=== PATIENT | female | born 1955 | race Two or more races ===

== ENCOUNTER → 2021-04-28 | Outpatient (CLI) | payer MEDICAID | END | disposition home or self-care (01) | LOC: XYW 13:42 | PROVIDERS: ATTEND Internal Medicine | DX: I25.10 Atherosclerotic heart disease of native coronary artery without angina pectoris (principal) | CPT/HCPCS: 93306 ==

== ENCOUNTER → 2021-06-10 | Outpatient (CLI) | payer MEDICAID ==
[~2021-06-10] VITALS: Ht 144.8 cm; Wt 52.2 kg
[~2021-06-10] MED LIST: ADENOSINE 44 MG in GIVE UN-DILUTED 0 ML IV STA
[2021-06-10 09:41] VITALS: BP 157/66
== END | disposition home or self-care (01) ==
LOC: EDUNIT# 05-06 08:30 → XY 08:16
PROVIDERS: ATTEND Internal Medicine
DX: I25.10 Atherosclerotic heart disease of native coronary artery without angina pectoris (principal); E11.22 Type 2 diabetes mellitus with diabetic chronic kidney disease; N18.30 Chronic kidney disease, stage 3 unspecified; Z95.5 Presence of coronary angioplasty implant and graft
CPT/HCPCS: 78452; 93017; A9500; J0153

== ENCOUNTER 2022-05-29 16:38 | Inpatient (IN) | payer OTHER, MEDICAID ==
[~2022-05-29] VITALS: Ht 162.6 cm; Wt 78.0 kg
[2022-05-29] MEDS ORDERED: SODIUM CHLORIDE 0.9% 1,000 ML IV ONE (16:45)
[2022-05-29 17:09] LABS: Basophils # (auto) 0 10 ^3/uL (0-0.2); Basophils % (auto) 0.3 % (0.0-2.0); Eosinophils # (auto) 0.4 10 ^3/uL (0-0.8); Eosinophils % (auto) 6.3 % (0.0-7.0); Hematocrit 37.3 % (36.0-46.0); Hemoglobin 12.4 g/dL (12.2-16.2); Lymphocytes % (auto) 31.2 % (10.0-50.0); Mean Corpuscular Hgb Conc. 33.2 g/dL (32.0-36.0); Mean Corpuscular Volume 93.4 fL (80.0-100.0); Monocytes # (auto) 0.5 10 ^3/uL (0-1.3); Monocytes % (auto) 8.5 % (0.0-12.0); Neutrophils # (auto) 3.4 10 ^3/uL (1.6-8.6); Neutrophils % (auto) 53.7 % (37.0-80.0); Nucleated Red Blood Cells % 0.4 %; Red Blood Cells 3.99 10^6/uL (4.0-5.20); White Blood Cell 6.4 10^3/uL (4.4-10.8)
[2022-05-29 17:35] LABS: Albumin 1.9 g/dL (3.4-5.0); BUN/Creatinine Ratio 14.4; Potassium 3.9 mmol/L (3.5-5.1)
[2022-05-29 17:38] LABS: Bilirubin, Total 1.2 mg/dL (0.2-1.0); Total Protein 6.4 g/dL (6.4-8.2)
[2022-05-29] MEDS ORDERED: ENOXAPARIN SOD 80 MG/0.8ML SYRINGE SC ONE (20:30)
[2022-05-29] MEDS ORDERED: DOCUSATE SOD 100 MG CAP PO PRN (22:15)
[2022-05-29] MEDS ORDERED: ALBUMIN 25% 100 ML IV ONE (22:15)
[2022-05-29] MEDS ORDERED: ONDANSETRON HCL 4 MG/2 ML VIAL IV PRN (22:15)
[2022-05-29] MEDS ORDERED: SOD CHL 0.45% 1,000 ML IV SCH (22:30)
[2022-05-29] MEDS ORDERED: HEPARIN SODIUM (PORCINE) 5000 UNITS/ML 1ML VIAL SC ONE (23:00)
[2022-05-29] MEDS ORDERED: MORPHINE SULFATE INJ 2 MG/ml SYRG IV PRN (23:30)
[2022-05-29] MEDS ORDERED: NITROGLYCERIN 0.4 MG SL TAB SL PRN (23:30)
[2022-05-30 02:00] VITALS: BP 147/48
[2022-05-30] MEDS ORDERED: ALBUTEROL SULF HFA 90MCG INH 200DOSE IN SCH (06:00)
[2022-05-30 06:32] LABS: Lactic Acid w/Reflex 2.2 mmol/L (0.4-2.0)
[2022-05-30 06:34] LABS: Alanine Aminotransferase 37 U/L (13-56); Albumin 2.5 g/dL (3.4-5.0); Anion Gap 9 (5-15); Aspartate Aminotransferase 96 U/L (15-37); BUN/Creatinine Ratio 15.5; Blood Urea Nitrogen 34 mg/dL (7-18); Calcium 8.1 mg/dL (8.5-10.1); Carbon Dioxide 19 mmol/L (21-32); Chloride 118 mmol/L (98-107); GFR African American 29 mL/min; GFR Non-African American 24 mL/min; Glucose 94 mg/dL (74-106); Potassium 4.1 mmol/L (3.5-5.1); Sodium 146 mmol/L (136-145)
[2022-05-30 06:36] LABS: Alkaline Phosphatase 311 U/L (45-117); Bilirubin, Total 1.4 mg/dL (0.2-1.0); Total Protein 6.7 g/dL (6.4-8.2)
[2022-05-30 06:49] LABS: Basophils # (auto) 0 10 ^3/uL (0-0.2); Basophils % (auto) 0.2 % (0.0-2.0); Eosinophils # (auto) 0.4 10 ^3/uL (0-0.8); Eosinophils % (auto) 5.2 % (0.0-7.0); Hematocrit 38.8 % (36.0-46.0); Hemoglobin 12.3 g/dL (12.2-16.2); Lymphocytes # (auto) 2.3 10 ^3/uL (0.4-5.4); Lymphocytes % (auto) 33.7 % (10.0-50.0); Mean Corpuscular Hemoglobin 29.6 pg (28.0-32.0); Mean Corpuscular Hgb Conc. 31.8 g/dL (32.0-36.0); Mean Corpuscular Volume 93.2 fL (80.0-100.0); Monocytes # (auto) 0.6 10 ^3/uL (0-1.3); Monocytes % (auto) 8.9 % (0.0-12.0); Neutrophils # (auto) 3.6 10 ^3/uL (1.6-8.6); Nucleated Red Blood Cells % 0.3 %; Red Blood Cells 4.16 10^6/uL (4.0-5.20); Red Cell Distribution Width 16.5 % (11.8-14.3); White Blood Cell 6.9 10^3/uL (4.4-10.8)
[2022-05-30] MEDS ORDERED: VANCOMYCIN PER PHARMACY 0 MG IV SCH (07:00)
[2022-05-30 07:05] LABS: Cholesterol 79 mg/dL (< 200); HDL Cholesterol 21 mg/dL (40-59); LDL Cholesterol 45 mg/dL (< 100); Triglycerides 111 mg/dL (< 150)
[2022-05-30] MEDS: BUDESONIDE (INHALATION) 180 MCG IH IN SCH ×2 (07:25→22:00)
[2022-05-30] MEDS ORDERED: VANCOMYCIN 1GM/250ML 250 ML IV ONE (08:00)
[2022-05-30] MEDS: CHOLECALCIFEROL (VITD3) 2,000 UNIT CAP/TAB PO SCH ×2 (09:49→10:00)
[2022-05-30] MEDS: ZINC SULFATE 220mg CAP or TAB PO SCH ×2 (09:49→10:00)
[2022-05-30] MEDS: ASPirin 81 mg TAB PO SCH ×2 (09:50→10:00)
[2022-05-30] MEDS: HEPARIN SODIUM (PORCINE) 5000 UNITS/ML 1ML VIAL SC SCH ×2 (09:56→23:37)
[2022-05-30] MEDS: FAMOTIDINE (10MG/ML) 2ML VL IV SCH (09:57)
[2022-05-30] MEDS: DexAMETHasone SOD PHOS 10MG/1ML VIAL INJ IV SCH (09:57)
[2022-05-30] MEDS: ASCORBIC ACID 1,000 MG TAB PO SCH (10:00)
[2022-05-30] MEDS: DOXYCYCLINE 100MG/250ML 250 ML IV SCH (10:00)
[2022-05-30 10:35] LABS: Urine Bacteria NONE SEEN /hpf (None Seen); Urine Blood 3+ /uL (Negative); Urine WBC 3444 /hpf (0 - 5); Urine WBC Clumps PRESENT /hpf (None Seen)
[2022-05-30] MEDS: SODIUM BICARBONATE 50ML VIAL 50 ML in SOD CHL 0.45% 1,000 ML IV SCH ×2 (11:57→21:00)
[2022-05-30] MEDS: LACTULOSE 10g/15ml SOLN 473ML PR SCH ×3 (12:00→18:00)
[2022-05-30] MEDS ORDERED: ALBUTEROL SULF HFA 90MCG INH 200DOSE IN PRN (12:45)
[2022-05-30] MEDS ORDERED: levoFLOXacin 500MG 100 ML IV ONE (12:45)
[2022-05-31] MEDS: DOXYCYCLINE 100MG/250ML 250 ML IV SCH ×3 (00:29→22:53)
[2022-05-31] MEDS: LACTULOSE 10g/15ml SOLN 473ML PR SCH ×4 (06:00→17:36)
[2022-05-31] MEDS: SODIUM BICARBONATE 50ML VIAL 50 ML in SOD CHL 0.45% 1,000 ML IV SCH ×2 (08:07→17:36)
[2022-05-31 08:15] LABS: Basophils # (auto) 0 10 ^3/uL (0-0.2); Basophils % (auto) 0.1 % (0.0-2.0); Eosinophils # (auto) 0 10 ^3/uL (0-0.8); Hematocrit 37.5 % (36.0-46.0); Hemoglobin 11.8 g/dL (12.2-16.2); Lymphocytes # (auto) 1.5 10 ^3/uL (0.4-5.4); Mean Corpuscular Hemoglobin 29.8 pg (28.0-32.0); Mean Corpuscular Hgb Conc. 31.5 g/dL (32.0-36.0); Mean Corpuscular Volume 94.6 fL (80.0-100.0); Monocytes # (auto) 0.3 10 ^3/uL (0-1.3); Monocytes % (auto) 4.4 % (0.0-12.0); Neutrophils # (auto) 5.2 10 ^3/uL (1.6-8.6); Neutrophils % (auto) 73.5 % (37.0-80.0); Nucleated Red Blood Cells % 0.1 %; Red Blood Cells 3.96 10^6/uL (4.0-5.20); Red Cell Distribution Width 16.5 % (11.8-14.3)
[2022-05-31 08:36] LABS: Albumin 2.2 g/dL (3.4-5.0); BUN/Creatinine Ratio 17.5; Potassium 4.5 mmol/L (3.5-5.1)
[2022-05-31 08:38] LABS: Total Protein 6.5 g/dL (6.4-8.2)
[2022-05-31] MEDS: levoFLOXacin 250MG 50 ML IV SCH (11:14)
[2022-05-31] MEDS: FAMOTIDINE (10MG/ML) 2ML VL IV SCH (11:14)
[2022-05-31] MEDS: ASCORBIC ACID 1,000 MG TAB PO SCH (11:15)
[2022-05-31] MEDS: CHOLECALCIFEROL (VITD3) 2,000 UNIT CAP/TAB PO SCH (11:15)
[2022-05-31] MEDS: DexAMETHasone SOD PHOS 10MG/1ML VIAL INJ IV SCH (11:15)
[2022-05-31] MEDS: ASPirin 81 mg TAB PO SCH (11:15)
[2022-05-31] MEDS: ZINC SULFATE 220mg CAP or TAB PO SCH (11:15)
[2022-05-31] MEDS: HEPARIN SODIUM (PORCINE) 5000 UNITS/ML 1ML VIAL SC SCH ×2 (11:16→22:54)
[2022-05-31] MEDS ORDERED: DOPamine 1600MCG/ML D5W 250 ML IV SCH (12:00)
[2022-05-31] MEDS ORDERED: OXYC325T14 PO (17:48)
[2022-05-31] MEDS ORDERED: CARV3.1240 PO (17:48)
[2022-05-31] MEDS ORDERED: CLOP75TA70 PO (17:48)
[2022-05-31] MEDS ORDERED: ATOR40TA52 PO (17:48)
[2022-05-31] MEDS ORDERED: CYCL-611 PO (17:48)
[2022-05-31 22:00] VITALS: BP 150/65
[2022-06-01] VITALS (7 sets, daily range): BP systolic 105–140; BP diastolic 69–82
[2022-06-01] MEDS: SODIUM BICARBONATE 50ML VIAL 50 ML in SOD CHL 0.45% 1,000 ML IV SCH ×2 (05:33→15:00)
[2022-06-01] MEDS: LACTULOSE 10g/15ml SOLN 473ML PR SCH ×2 (06:00)
[2022-06-01] MEDS: ZINC SULFATE 220mg CAP or TAB PO SCH (09:06)
[2022-06-01] MEDS: ASPirin 81 mg TAB PO SCH (09:06)
[2022-06-01] MEDS: CHOLECALCIFEROL (VITD3) 2,000 UNIT CAP/TAB PO SCH (09:06)
[2022-06-01] MEDS: ASCORBIC ACID 1,000 MG TAB PO SCH (09:06)
[2022-06-01] MEDS: FAMOTIDINE (10MG/ML) 2ML VL IV SCH (09:07)
[2022-06-01] MEDS: DOXYCYCLINE 100MG/250ML 250 ML IV SCH ×2 (09:07→21:53)
[2022-06-01] MEDS: DexAMETHasone SOD PHOS 10MG/1ML VIAL INJ IV SCH (09:07)
[2022-06-01] MEDS: HEPARIN SODIUM (PORCINE) 5000 UNITS/ML 1ML VIAL SC SCH ×2 (10:42→21:54)
[2022-06-01] MEDS: LACTULOSE 20Gm/30ML SOLN PO SCH ×3 (12:00→23:56)
[2022-06-01] MEDS: levoFLOXacin 250MG 50 ML IV SCH (12:18)
[2022-06-01 22:23] LABS: Urine Bacteria MANY /hpf (None Seen); Urine Blood 2+ /uL (Negative); Urine WBC 3198 /hpf (0 - 5); Urine WBC Clumps PRESENT /hpf (None Seen)
[2022-06-02] MEDS: SODIUM BICARBONATE 50ML VIAL 50 ML in SOD CHL 0.45% 1,000 ML IV SCH ×3 (01:30→21:36)
[2022-06-02 05:00] VITALS: BP 176/51
[2022-06-02] MEDS: LACTULOSE 20Gm/30ML SOLN PO SCH ×4 (06:22→21:09)
[2022-06-02 09:00] VITALS: BP 158/72
[2022-06-02] MEDS: HEPARIN SODIUM (PORCINE) 5000 UNITS/ML 1ML VIAL SC SCH ×2 (10:02→21:07)
[2022-06-02] MEDS: levoFLOXacin 250MG 50 ML IV SCH (10:02)
[2022-06-02] MEDS: ASPirin 81 mg TAB PO SCH (10:03)
[2022-06-02] MEDS: DOXYCYCLINE 100MG/250ML 250 ML IV SCH ×2 (10:03→21:07)
[2022-06-02] MEDS: FAMOTIDINE (10MG/ML) 2ML VL IV SCH (10:03)
[2022-06-02] MEDS: ZINC SULFATE 220mg CAP or TAB PO SCH (10:03)
[2022-06-02] MEDS: CHOLECALCIFEROL (VITD3) 2,000 UNIT CAP/TAB PO SCH (10:03)
[2022-06-02] MEDS: DexAMETHasone SOD PHOS 10MG/1ML VIAL INJ IV SCH (10:04)
[2022-06-02] MEDS: ASCORBIC ACID 1,000 MG TAB PO SCH (10:58)
[2022-06-02 22:00] VITALS: BP 153/80
[2022-06-03 05:27] VITALS: BP 155/75
[2022-06-03] MEDS: LACTULOSE 20Gm/30ML SOLN PO SCH ×4 (06:41→22:51)
[2022-06-03 09:00] VITALS: BP 131/60
[2022-06-03] MEDS: CHOLECALCIFEROL (VITD3) 2,000 UNIT CAP/TAB PO SCH (09:32)
[2022-06-03] MEDS: ASPirin 81 mg TAB PO SCH (09:32)
[2022-06-03] MEDS: ZINC SULFATE 220mg CAP or TAB PO SCH (09:32)
[2022-06-03] MEDS: FAMOTIDINE (10MG/ML) 2ML VL IV SCH (09:32)
[2022-06-03] MEDS: DOXYCYCLINE 100MG/250ML 250 ML IV SCH ×2 (09:35→22:52)
[2022-06-03] MEDS: DexAMETHasone SOD PHOS 10MG/1ML VIAL INJ IV SCH (09:35)
[2022-06-03] MEDS ORDERED: ERTAPENEM SOD INJ 1 GM in SODIUM CHL 0.9% 50 ML IV SCH (10:00)
[2022-06-03] MEDS: ASCORBIC ACID 1,000 MG TAB PO SCH (10:09)
[2022-06-03] MEDS: HEPARIN SODIUM (PORCINE) 5000 UNITS/ML 1ML VIAL SC SCH ×2 (10:11→22:00)
[2022-06-03 12:46] VITALS: BP_SYST 142; BP_SYST 187; BP_DIAS 59; BP_DIAS 91
[2022-06-03] MEDS: SODIUM BICARBONATE 50ML VIAL 50 ML in SOD CHL 0.45% 1,000 ML IV SCH ×2 (16:52→19:30)
[2022-06-03 17:00] VITALS: BP 136/82
[2022-06-03 22:00] VITALS: BP 150/73
[2022-06-04] MEDS ORDERED: hydrALAZINE HCL 20 MG/ML VL IV ONE (01:00)
[2022-06-04 05:08] VITALS: BP 147/68
[2022-06-04] MEDS: SODIUM BICARBONATE 50ML VIAL 50 ML in SOD CHL 0.45% 1,000 ML IV SCH ×3 (06:00→22:52)
[2022-06-04] MEDS: LACTULOSE 20Gm/30ML SOLN PO SCH ×3 (06:00→18:13)
[2022-06-04 08:00] VITALS: BP 155/64
[2022-06-04 09:09] VITALS: BP 155/64
[2022-06-04] MEDS: CHOLECALCIFEROL (VITD3) 2,000 UNIT CAP/TAB PO SCH (10:00)
[2022-06-04] MEDS: HEPARIN SODIUM (PORCINE) 5000 UNITS/ML 1ML VIAL SC SCH ×2 (10:00→22:00)
[2022-06-04] MEDS: ZINC SULFATE 220mg CAP or TAB PO SCH (10:00)
[2022-06-04] MEDS: DexAMETHasone SOD PHOS 10MG/1ML VIAL INJ IV SCH (10:00)
[2022-06-04] MEDS: ASPirin 81 mg TAB PO SCH (10:00)
[2022-06-04] MEDS: FAMOTIDINE (10MG/ML) 2ML VL IV SCH (10:00)
[2022-06-04] MEDS: ASCORBIC ACID 1,000 MG TAB PO SCH (10:00)
[2022-06-04] MEDS: ERTAPENEM SOD INJ 0.5 GM in SODIUM CHL 0.9% 50 ML IV SCH (11:04)
[2022-06-04 13:56] VITALS: BP 148/67
[2022-06-04 17:12] VITALS: BP 155/66
[2022-06-04 20:00] VITALS: BP 154/58
[2022-06-05] MEDS: SODIUM BICARBONATE 50ML VIAL 50 ML in SOD CHL 0.45% 1,000 ML IV SCH ×2 (00:57→07:49)
[2022-06-05] MEDS: LACTULOSE 20Gm/30ML SOLN PO SCH ×4 (06:00→18:00)
[2022-06-05 08:00] VITALS: BP 157/72
[2022-06-05 08:04] VITALS: BP 157/72
[2022-06-05] MEDS ORDERED: CLINIMIX PER PHARMACY 0 ML IV SCH (09:30)
[2022-06-05] MEDS: HEPARIN SODIUM (PORCINE) 5000 UNITS/ML 1ML VIAL SC SCH ×2 (10:00→21:55)
[2022-06-05] MEDS: DexAMETHasone SOD PHOS 10MG/1ML VIAL INJ IV SCH (11:36)
[2022-06-05] MEDS: ASCORBIC ACID 1,000 MG TAB PO SCH (11:36)
[2022-06-05] MEDS: CHOLECALCIFEROL (VITD3) 2,000 UNIT CAP/TAB PO SCH (11:36)
[2022-06-05] MEDS: ASPirin 81 mg TAB PO SCH (11:36)
[2022-06-05] MEDS: ZINC SULFATE 220mg CAP or TAB PO SCH (11:36)
[2022-06-05 11:41] VITALS: BP 167/80
[2022-06-05] MEDS: ERTAPENEM SOD INJ 0.5 GM in SODIUM CHL 0.9% 50 ML IV SCH (11:46)
[2022-06-05 16:28] VITALS: BP 139/85
[2022-06-05] MEDS ORDERED: SODIUM BICARBONATE 50ML VIAL 150 ML in D5W 5% 1,000 ML IV ONE (17:30)
[2022-06-05] MEDS ORDERED: amLODIPine BESYLATE 5 MG TAB PO ONE (17:45)
[2022-06-05] MEDS ORDERED: LORazepam 2MG/ML-1ML VIAL IV ONE (19:00)
[2022-06-05] MEDS ORDERED: DEXTROSE (50%) 50ML SYRG IV SCH (20:00)
[2022-06-05] MEDS: AMINO ACID INFUSION IN D10W 1,000 ML IV NR (21:43)
[2022-06-05] MEDS: PANTOPRAZOLE 40 MG/10 ML VIAL INJ IV SCH (21:44)
[2022-06-05 22:00] VITALS: BP 128/60
[2022-06-06] MEDS: ACCU-CHEK COMFORT CURVE STRIP VI SCH ×5 (00:27→23:29)
[2022-06-06] MEDS: LACTULOSE 20Gm/30ML SOLN PO SCH ×5 (00:27→23:29)
[2022-06-06] MEDS: InsuLIN REG 1unit/0.01ml Soln (100units/ml) SC SCH ×5 (00:31→23:18)
[2022-06-06 04:45] VITALS: BP 136/74
[2022-06-06 05:41] LABS: Albumin 1.8 g/dL (3.4-5.0); Calcium 7.6 mg/dL (8.5-10.1); Magnesium 1.5 mg/dL (1.6-2.6)
[2022-06-06 05:46] LABS: BUN/Creatinine Ratio 23.3; Bilirubin, Total 1.7 mg/dL (0.2-1.0); Phosphorus 2.4 mg/dL (2.5-4.90); Total Protein 5.1 g/dL (6.4-8.2)
[2022-06-06 08:00] VITALS: BP 109/44
[2022-06-06] MEDS: DexAMETHasone SOD PHOS 10MG/1ML VIAL INJ IV SCH (09:43)
[2022-06-06] MEDS: ERTAPENEM SOD INJ 0.5 GM in SODIUM CHL 0.9% 50 ML IV SCH (09:43)
[2022-06-06] MEDS: PANTOPRAZOLE 40 MG/10 ML VIAL INJ IV SCH ×2 (09:43→22:00)
[2022-06-06] MEDS: HEPARIN SODIUM (PORCINE) 5000 UNITS/ML 1ML VIAL SC SCH ×2 (10:00→22:00)
[2022-06-06] MEDS: ASPirin 81 mg TAB PO SCH (10:00)
[2022-06-06] MEDS: ASCORBIC ACID 1,000 MG TAB PO SCH (10:00)
[2022-06-06] MEDS: ZINC SULFATE 220mg CAP or TAB PO SCH (10:00)
[2022-06-06] MEDS: amLODIPine BESYLATE 5 MG TAB PO SCH (10:00)
[2022-06-06] MEDS: CHOLECALCIFEROL (VITD3) 2,000 UNIT CAP/TAB PO SCH (10:00)
[2022-06-06] MEDS ORDERED: POTASSIUM EFFERVESENT TAB 25 MEQ PO ONE (11:30)
[2022-06-06] MEDS ORDERED: POTASSIUM CHL 20 Meq TABLET PO ONE (11:30)
[2022-06-06] MEDS ORDERED: POTASSIUM PHOSPHATE 44 MEQ in D5W 5% 250 ML IV ONE (11:45)
[2022-06-06] MEDS ORDERED: MAGNESIUM SULFATE 1GM/100ML 100 ML IV ONE (11:45)
[2022-06-06] MEDS ORDERED: MAGNESIUM OXIDE 400 MG TAB PO ONE (11:45)
[2022-06-06] MEDS ORDERED: FUROSEMIDE 40 MG/4 ML VIAL IV ONE (11:45)
[2022-06-06] MEDS ORDERED: POTASSIUM CHL 20MEQ/100ML 100 ML IV ONE (12:30)
[2022-06-06 13:00] VITALS: BP 137/78
[2022-06-06 17:07] VITALS: BP 116/64
[2022-06-06 20:00] VITALS: BP 109/44
[2022-06-06] MEDS: AMINO ACID INFUSION IN D10W 1,000 ML IV NR (20:24)
[2022-06-06 22:00] VITALS: BP 96/60
[2022-06-07 04:43] VITALS: BP 129/56
[2022-06-07] MEDS: InsuLIN REG 1unit/0.01ml Soln (100units/ml) SC SCH ×4 (05:18→21:59)
[2022-06-07] MEDS: LACTULOSE 20Gm/30ML SOLN PO SCH ×4 (05:20→22:01)
[2022-06-07] MEDS: ACCU-CHEK COMFORT CURVE STRIP VI SCH ×4 (06:00→22:02)
[2022-06-07 08:00] VITALS: BP 104/59
[2022-06-07 09:00] VITALS: BP 104/59
[2022-06-07] MEDS ORDERED: MAGNESIUM OXIDE 400 MG TAB PO SCH (10:00)
[2022-06-07] MEDS: ASPirin 81 mg TAB PO SCH (10:00)
[2022-06-07] MEDS: amLODIPine BESYLATE 5 MG TAB PO SCH (10:00)
[2022-06-07] MEDS: CHOLECALCIFEROL (VITD3) 2,000 UNIT CAP/TAB PO SCH (10:00)
[2022-06-07] MEDS: ZINC SULFATE 220mg CAP or TAB PO SCH (10:00)
[2022-06-07] MEDS: ASCORBIC ACID 1,000 MG TAB PO SCH (10:00)
[2022-06-07] MEDS: ERTAPENEM SOD INJ 0.5 GM in SODIUM CHL 0.9% 50 ML IV SCH (10:06)
[2022-06-07] MEDS: PANTOPRAZOLE 40 MG/10 ML VIAL INJ IV SCH ×2 (10:06→21:59)
[2022-06-07] MEDS: DexAMETHasone SOD PHOS 10MG/1ML VIAL INJ IV SCH (10:07)
[2022-06-07] MEDS: HEPARIN SODIUM (PORCINE) 5000 UNITS/ML 1ML VIAL SC SCH ×2 (10:29→22:01)
[2022-06-07 13:37] LABS: Basophils # (auto) 0 10 ^3/uL (0-0.2); Basophils % (auto) 0.1 % (0.0-2.0); Eosinophils # (auto) 0 10 ^3/uL (0-0.8); Hematocrit 37.9 % (36.0-46.0); Hemoglobin 12.2 g/dL (12.2-16.2); Lymphocytes # (auto) 1.4 10 ^3/uL (0.4-5.4); Lymphocytes % (auto) 12.1 % (10.0-50.0); Mean Corpuscular Hemoglobin 29.9 pg (28.0-32.0); Mean Corpuscular Hgb Conc. 32.3 g/dL (32.0-36.0); Mean Corpuscular Volume 92.7 fL (80.0-100.0); Monocytes # (auto) 0.3 10 ^3/uL (0-1.3); Monocytes % (auto) 2.7 % (0.0-12.0); Neutrophils # (auto) 9.7 10 ^3/uL (1.6-8.6); Neutrophils % (auto) 85.1 % (37.0-80.0); Nucleated Red Blood Cells % 0.3 %; Red Blood Cells 4.09 10^6/uL (4.0-5.20); Red Cell Distribution Width 16.3 % (11.8-14.3); White Blood Cell 11.5 10^3/uL (4.4-10.8)
[2022-06-07 13:55] LABS: Albumin 1.8 g/dL (3.4-5.0); Calcium 7.9 mg/dL (8.5-10.1); Magnesium 1.9 mg/dL (1.6-2.6); Potassium 4.2 mmol/L (3.5-5.1)
[2022-06-07 13:57] LABS: BUN/Creatinine Ratio 27.6; Bilirubin, Total 1.6 mg/dL (0.2-1.0); Total Protein 5.5 g/dL (6.4-8.2)
[2022-06-07 14:49] LABS: INR 1.34 (0.9-1.15); Partial Thromboplastin Time 49.5 sec (24.6-33.4)
[2022-06-07] MEDS ORDERED: FUROSEMIDE 20 MG/2 ML VIAL IV ONE (16:00)
[2022-06-07 20:00] VITALS: BP 104/59
[2022-06-07] MEDS ORDERED: AMINO ACID INFUSION IN D10W 1,000 ML IV NR (20:00)
[2022-06-07 21:08] VITALS: BP 118/63
[2022-06-08 04:32] VITALS: BP 130/43
[2022-06-08] MEDS: InsuLIN REG 1unit/0.01ml Soln (100units/ml) SC SCH ×4 (05:40→23:39)
[2022-06-08] MEDS: LACTULOSE 20Gm/30ML SOLN PO SCH ×4 (05:43→23:38)
[2022-06-08] MEDS: ACCU-CHEK COMFORT CURVE STRIP VI SCH ×4 (06:00→23:39)
[2022-06-08 08:00] VITALS: BP 112/52
[2022-06-08 08:30] VITALS: BP 112/52
[2022-06-08] MEDS: PANTOPRAZOLE 40 MG/10 ML VIAL INJ IV SCH ×2 (09:25→20:55)
[2022-06-08] MEDS: DexAMETHasone SOD PHOS 10MG/1ML VIAL INJ IV SCH (09:25)
[2022-06-08] MEDS: ERTAPENEM SOD INJ 0.5 GM in SODIUM CHL 0.9% 50 ML IV SCH (09:25)
[2022-06-08] MEDS: ASPirin 81 mg TAB PO SCH (09:25)
[2022-06-08] MEDS: HEPARIN SODIUM (PORCINE) 5000 UNITS/ML 1ML VIAL SC SCH (09:26)
[2022-06-08] MEDS: CHOLECALCIFEROL (VITD3) 2,000 UNIT CAP/TAB PO SCH (09:26)
[2022-06-08] MEDS: amLODIPine BESYLATE 5 MG TAB PO SCH (09:26)
[2022-06-08 10:10] LABS: BUN/Creatinine Ratio 32.3; Potassium 4.7 mmol/L (3.5-5.1)
[2022-06-08 10:11] LABS: Calcium 7.6 mg/dL (8.5-10.1)
[2022-06-08 10:12] LABS: Albumin 1.3 g/dL (3.4-5.0); Bilirubin, Total 1.3 mg/dL (0.2-1.0); Phosphorus 3.5 mg/dL (2.5-4.90); Total Protein 5.2 g/dL (6.4-8.2)
[2022-06-08 12:30] VITALS: BP 130/59
[2022-06-08] MEDS ORDERED: ALBUMIN 25% 50 ML IV SCH (13:45)
[2022-06-08 17:00] VITALS: BP 153/67
[2022-06-08] MEDS: ALBUMIN 25% 50 ML IV SCH (18:27)
[2022-06-08] MEDS: AMINO ACID INFUSION IN D10W 1,000 ML IV NR (18:27)
[2022-06-08] MEDS: MIRTAZAPINE 30 MG TAB PO SCH (20:56)
[2022-06-08 22:00] VITALS: BP 139/59
[2022-06-09] MEDS: ALBUMIN 25% 50 ML IV SCH ×2 (01:48→09:47)
[2022-06-09 05:00] VITALS: BP 152/52
[2022-06-09] MEDS: LACTULOSE 20Gm/30ML SOLN PO SCH ×4 (05:01→23:37)
[2022-06-09] MEDS: InsuLIN REG 1unit/0.01ml Soln (100units/ml) SC SCH ×4 (06:16→23:43)
[2022-06-09] MEDS: ACCU-CHEK COMFORT CURVE STRIP VI SCH ×4 (06:20→23:38)
[2022-06-09 08:00] VITALS: BP 134/59
[2022-06-09 09:00] VITALS: BP 134/59
[2022-06-09] MEDS: DexAMETHasone SOD PHOS 10MG/1ML VIAL INJ IV SCH (09:45)
[2022-06-09] MEDS: CHOLECALCIFEROL (VITD3) 2,000 UNIT CAP/TAB PO SCH (09:46)
[2022-06-09] MEDS: ERTAPENEM SOD INJ 0.5 GM in SODIUM CHL 0.9% 50 ML IV SCH (09:46)
[2022-06-09] MEDS: amLODIPine BESYLATE 5 MG TAB PO SCH (09:46)
[2022-06-09] MEDS: ASPirin 81 mg TAB PO SCH (09:46)
[2022-06-09] MEDS: PANTOPRAZOLE 40 MG/10 ML VIAL INJ IV SCH ×2 (09:46→21:00)
[2022-06-09 10:35] LABS: Albumin 2.1 g/dL (3.4-5.0); Calcium 8.1 mg/dL (8.5-10.1); Magnesium 2.1 mg/dL (1.6-2.6); Potassium 4.3 mmol/L (3.5-5.1)
[2022-06-09 10:37] LABS: BUN/Creatinine Ratio 33.6; Bilirubin, Total 1.8 mg/dL (0.2-1.0); Phosphorus 3.2 mg/dL (2.5-4.90); Total Protein 5.3 g/dL (6.4-8.2)
[2022-06-09 13:00] VITALS: BP 129/55
[2022-06-09 17:00] VITALS: BP 125/74
[2022-06-09] MEDS: AMINO ACID INFUSION IN D10W 1,000 ML IV NR (20:13)
[2022-06-09] MEDS: MIRTAZAPINE 30 MG TAB PO SCH (21:01)
[2022-06-09 22:00] VITALS: BP 154/74
[2022-06-10 05:00] VITALS: BP 152/57
[2022-06-10] MEDS: LACTULOSE 20Gm/30ML SOLN PO SCH ×4 (05:27→23:59)
[2022-06-10] MEDS: ACCU-CHEK COMFORT CURVE STRIP VI SCH ×3 (06:12→17:38)
[2022-06-10] MEDS: InsuLIN REG 1unit/0.01ml Soln (100units/ml) SC SCH ×3 (06:34→17:47)
[2022-06-10 08:25] VITALS: BP 141/58
[2022-06-10 09:00] VITALS: BP 141/58
[2022-06-10] MEDS: PANTOPRAZOLE 40 MG/10 ML VIAL INJ IV SCH ×2 (10:08→21:23)
[2022-06-10] MEDS: CHOLECALCIFEROL (VITD3) 2,000 UNIT CAP/TAB PO SCH (10:08)
[2022-06-10] MEDS: amLODIPine BESYLATE 5 MG TAB PO SCH (10:09)
[2022-06-10] MEDS: DexAMETHasone SOD PHOS 10MG/1ML VIAL INJ IV SCH (10:09)
[2022-06-10] MEDS: ASPirin 81 mg TAB PO SCH (10:09)
[2022-06-10] MEDS: ERTAPENEM SOD INJ 0.5 GM in SODIUM CHL 0.9% 50 ML IV SCH (10:10)
[2022-06-10 13:00] VITALS: BP 140/65
[2022-06-10 17:00] VITALS: BP 132/70
[2022-06-10] MEDS: AMINO ACID INFUSION IN D10W 1,000 ML IV NR (21:22)
[2022-06-10] MEDS: MIRTAZAPINE 30 MG TAB PO SCH (21:23)
[2022-06-10 22:00] VITALS: BP 133/56
[2022-06-10 23:19] LABS: Albumin 2.4 g/dL (3.4-5.0); Calcium 8.2 mg/dL (8.5-10.1); Magnesium 1.9 mg/dL (1.6-2.6); Phosphorus 2.4 mg/dL (2.5-4.90); Potassium 3.4 mmol/L (3.5-5.1)
[2022-06-11] MEDS: InsuLIN REG 1unit/0.01ml Soln (100units/ml) SC SCH ×5 (00:02→23:59)
[2022-06-11 05:00] VITALS: BP 136/66
[2022-06-11] MEDS: LACTULOSE 20Gm/30ML SOLN PO SCH (05:08)
[2022-06-11] MEDS: ACCU-CHEK COMFORT CURVE STRIP VI SCH ×5 (05:33→23:59)
[2022-06-11] MEDS ORDERED: LIDOCAINE VISCOUS 2% 15ML UD ONE (08:47)
[2022-06-11 09:00] VITALS: BP 138/58
[2022-06-11] MEDS: CHOLECALCIFEROL (VITD3) 2,000 UNIT CAP/TAB PO SCH (10:00)
[2022-06-11] MEDS: ASPirin 81 mg TAB PO SCH (10:00)
[2022-06-11] MEDS: ERTAPENEM SOD INJ 0.5 GM in SODIUM CHL 0.9% 50 ML IV SCH (10:00)
[2022-06-11] MEDS: amLODIPine BESYLATE 5 MG TAB PO SCH (10:00)
[2022-06-11 13:00] VITALS: BP 132/72
[2022-06-11] MEDS ORDERED: CATHFLO ACTIVASE (ALTEPLASE) 2 MG VIAL IV ONE (13:15)
[2022-06-11] MEDS ORDERED: hydrALAZINE HCL 20 MG/ML VL IV ONE (13:45)
[2022-06-11] MEDS ORDERED: MIDAZOLAM HCL 2MG/2ML 2ml VIAL (1mg/ml) ONE (14:09)
[2022-06-11] MEDS ORDERED: MEPERIDINE HCL (25 MG/ML) 1ML VIAL ONE (14:09)
[2022-06-11] MEDS ORDERED: fentaNYL CITRATE 100 MCG/2 ML VL ONE (14:09)
[2022-06-11] MEDS ORDERED: DexAMETHasone SOD PHOS 10MG/1ML VIAL INJ ONE (14:24)
[2022-06-11] MEDS ORDERED: PROPOFOL 10 MG/ML 20 ML IV ONE (14:34)
[2022-06-11 17:00] VITALS: BP 105/74
[2022-06-11] MEDS: PANTOPRAZOLE 40 MG/10 ML VIAL INJ IV SCH ×2 (17:28→21:52)
[2022-06-11] MEDS ORDERED: AMINO ACID INFUSION IN D10W 1,000 ML IV NR (20:00)
[2022-06-11 22:00] VITALS: BP 142/83
[2022-06-11] MEDS: MIRTAZAPINE 30 MG TAB PO SCH (22:00)
[2022-06-12 05:00] VITALS: BP 154/55
[2022-06-12] MEDS: InsuLIN REG 1unit/0.01ml Soln (100units/ml) SC SCH ×3 (06:00→18:00)
[2022-06-12] MEDS: ACCU-CHEK COMFORT CURVE STRIP VI SCH ×3 (06:07→19:07)
[2022-06-12] MEDS ORDERED: LORazepam 2MG/ML-1ML VIAL IV ONE (08:45)
[2022-06-12 09:00] VITALS: BP 126/57
[2022-06-12] MEDS: ASPirin 81 mg TAB PO SCH (10:00)
[2022-06-12] MEDS ORDERED: DexAMETHasone SOD PHOS 10MG/1ML VIAL INJ IV SCH (10:00)
[2022-06-12] MEDS: ERTAPENEM SOD INJ 0.5 GM in SODIUM CHL 0.9% 50 ML IV SCH ×2 (10:00→15:30)
[2022-06-12] MEDS: PANTOPRAZOLE 40 MG/10 ML VIAL INJ IV SCH ×2 (10:00→23:06)
[2022-06-12] MEDS: CHOLECALCIFEROL (VITD3) 2,000 UNIT CAP/TAB PO SCH (10:00)
[2022-06-12] MEDS: amLODIPine BESYLATE 5 MG TAB PO SCH (10:00)
[2022-06-12] MEDS ORDERED: LORazepam 2MG/ML-1ML VIAL IM ONE (12:00)
[2022-06-12 13:00] VITALS: BP_SYST 126; BP_SYST 132; BP_DIAS 57; BP_DIAS 66
[2022-06-12] MEDS: AMINO ACID INFUSION IN D10W 1,000 ML IV NR (14:11)
[2022-06-12 14:20] LABS: Albumin 2.3 g/dL (3.4-5.0); BUN/Creatinine Ratio 41.2; Calcium 8.3 mg/dL (8.5-10.1); Phosphorus 2.8 mg/dL (2.5-4.90); Potassium 4.4 mmol/L (3.5-5.1)
[2022-06-12] MEDS ORDERED: LORazepam 2MG/ML-1ML VIAL IV PRN (15:45)
[2022-06-12 17:00] VITALS: BP 108/54
[2022-06-12 22:00] VITALS: BP 128/55
[2022-06-12] MEDS: MIRTAZAPINE 30 MG TAB PO SCH (23:06)
[2022-06-13] MEDS: ACCU-CHEK COMFORT CURVE STRIP VI SCH ×4 (00:19→19:07)
[2022-06-13] MEDS: InsuLIN REG 1unit/0.01ml Soln (100units/ml) SC SCH ×4 (00:40→19:08)
[2022-06-13 05:00] VITALS: BP 133/56
[2022-06-13 07:16] LABS: INR 1.41 (0.9-1.15)
[2022-06-13 08:13] LABS: Albumin 2.2 g/dL (3.4-5.0); BUN/Creatinine Ratio 42.8; Calcium 8.3 mg/dL (8.5-10.1); Phosphorus 2.5 mg/dL (2.5-4.90); Potassium 3.7 mmol/L (3.5-5.1)
[2022-06-13 08:24] VITALS: BP 137/63
[2022-06-13 09:13] LABS: Basophils # (auto) 0 10 ^3/uL (0-0.2); Basophils % (auto) 0.2 % (0.0-2.0); Eosinophils # (auto) 0.2 10 ^3/uL (0-0.8); Eosinophils % (auto) 1.5 % (0.0-7.0); Hematocrit 29.7 % (36.0-46.0); Hemoglobin 9.7 g/dL (12.2-16.2); Lymphocytes # (auto) 1.9 10 ^3/uL (0.4-5.4); Lymphocytes % (auto) 16.5 % (10.0-50.0); Mean Corpuscular Hemoglobin 30.4 pg (28.0-32.0); Mean Corpuscular Hgb Conc. 32.7 g/dL (32.0-36.0); Monocytes # (auto) 0.6 10 ^3/uL (0-1.3); Neutrophils % (auto) 76.8 % (37.0-80.0); Nucleated Red Blood Cells % 0.2 %; Red Blood Cells 3.19 10^6/uL (4.0-5.20); Red Cell Distribution Width 15.9 % (11.8-14.3); White Blood Cell 11.7 10^3/uL (4.4-10.8)
[2022-06-13 09:23] LABS: Albumin 2.2 g/dL (3.4-5.0); Calcium 8.3 mg/dL (8.5-10.1); Potassium 3.8 mmol/L (3.5-5.1)
[2022-06-13 09:26] LABS: BUN/Creatinine Ratio 40.3; Bilirubin, Total 2.4 mg/dL (0.2-1.0); Total Protein 4.5 g/dL (6.4-8.2)
[2022-06-13] MEDS: CHOLECALCIFEROL (VITD3) 2,000 UNIT CAP/TAB PO SCH (11:21)
[2022-06-13] MEDS: PANTOPRAZOLE 40 MG/10 ML VIAL INJ IV SCH ×2 (11:22→22:38)
[2022-06-13] MEDS: amLODIPine BESYLATE 5 MG TAB PO SCH (11:22)
[2022-06-13] MEDS: ASPirin 81 mg TAB PO SCH (11:22)
[2022-06-13] MEDS: DexAMETHasone SOD PHOS 10MG/1ML VIAL INJ IV SCH ×2 (11:23→11:28)
[2022-06-13] MEDS: ERTAPENEM SOD INJ 0.5 GM in SODIUM CHL 0.9% 50 ML IV SCH (12:40)
[2022-06-13 12:42] VITALS: BP 105/63
[2022-06-13] MEDS: AMINO ACID INFUSION IN D10W 1,000 ML IV NR ×2 (14:09→22:33)
[2022-06-13 17:13] VITALS: BP 131/47
[2022-06-13 22:00] VITALS: BP 125/59
[2022-06-13] MEDS: MIRTAZAPINE 30 MG TAB PO SCH (22:38)
[2022-06-14] MEDS: ACCU-CHEK COMFORT CURVE STRIP VI SCH ×5 (00:23→23:38)
[2022-06-14] MEDS: InsuLIN REG 1unit/0.01ml Soln (100units/ml) SC SCH ×5 (00:31→23:47)
[2022-06-14 05:00] VITALS: BP 151/64
[2022-06-14 09:00] VITALS: BP 130/62
[2022-06-14] MEDS: DexAMETHasone SOD PHOS 10MG/1ML VIAL INJ IV SCH (09:57)
[2022-06-14] MEDS: ASPirin 81 mg TAB PO SCH (09:57)
[2022-06-14] MEDS: PANTOPRAZOLE 40 MG/10 ML VIAL INJ IV SCH ×2 (09:57→23:28)
[2022-06-14] MEDS: amLODIPine BESYLATE 5 MG TAB PO SCH (09:57)
[2022-06-14] MEDS: CHOLECALCIFEROL (VITD3) 2,000 UNIT CAP/TAB PO SCH (09:57)
[2022-06-14] MEDS: ERTAPENEM SOD INJ 0.5 GM in SODIUM CHL 0.9% 50 ML IV SCH (10:15)
[2022-06-14 11:29] LABS: BUN/Creatinine Ratio 39.7; Magnesium 2.1 mg/dL (1.6-2.6)
[2022-06-14 11:32] LABS: Bilirubin, Total 2.2 mg/dL (0.2-1.0); Phosphorus 1.7 mg/dL (2.5-4.90); Total Protein 5.3 g/dL (6.4-8.2)
[2022-06-14] MEDS ORDERED: POTASSIUM PHOSPHATE 22 MEQ in SODIUM CHL 0.9% 100 ML IV ONE (12:30)
[2022-06-14 13:00] VITALS: BP 155/66
[2022-06-14 17:00] VITALS: BP 152/71
[2022-06-14 22:00] VITALS: BP 128/78
[2022-06-14] MEDS: AMINO ACID INFUSION IN D10W 1,000 ML IV NR (23:18)
[2022-06-14] MEDS: MIRTAZAPINE 30 MG TAB PO SCH (23:28)
[2022-06-15 05:00] VITALS: BP 136/70
[2022-06-15] MEDS: ACCU-CHEK COMFORT CURVE STRIP VI SCH ×3 (06:00→17:31)
[2022-06-15] MEDS: InsuLIN REG 1unit/0.01ml Soln (100units/ml) SC SCH ×3 (06:01→17:29)
[2022-06-15 08:00] VITALS: BP_SYST 130; BP_SYST 146; BP_DIAS 62; BP_DIAS 80
[2022-06-15] MEDS: CHOLECALCIFEROL (VITD3) 2,000 UNIT CAP/TAB PO SCH (09:32)
[2022-06-15] MEDS: PANTOPRAZOLE 40 MG/10 ML VIAL INJ IV SCH ×2 (09:33→21:42)
[2022-06-15] MEDS: DexAMETHasone SOD PHOS 10MG/1ML VIAL INJ IV SCH (09:33)
[2022-06-15] MEDS: amLODIPine BESYLATE 5 MG TAB PO SCH (09:33)
[2022-06-15] MEDS: ASPirin 81 mg TAB PO SCH (09:33)
[2022-06-15] MEDS: ERTAPENEM SOD INJ 0.5 GM in SODIUM CHL 0.9% 50 ML IV SCH (10:57)
[2022-06-15] MEDS ORDERED: Glucerna 1.2 Cal 1Liter BOTTLE GT SCH (11:15)
[2022-06-15 12:00] VITALS: BP 140/80
[2022-06-15 16:00] VITALS: BP 146/63
[2022-06-15 20:00] VITALS: BP 120/67
[2022-06-15] MEDS: AMINO ACID INFUSION IN D10W 1,000 ML IV NR (21:42)
[2022-06-15] MEDS: MIRTAZAPINE 30 MG TAB PO SCH (21:42)
[2022-06-15 22:00] VITALS: BP 120/67
[2022-06-15 22:00] LABS: Albumin 2.1 g/dL (3.4-5.0); BUN/Creatinine Ratio 40.8; Calcium 8.4 mg/dL (8.5-10.1); Potassium 3.9 mmol/L (3.5-5.1)
[2022-06-15 22:03] LABS: Bilirubin, Total 1.8 mg/dL (0.2-1.0); Phosphorus 1.9 mg/dL (2.5-4.90); Total Protein 5.1 g/dL (6.4-8.2)
[2022-06-16] MEDS: ACCU-CHEK COMFORT CURVE STRIP VI SCH ×4 (00:50→18:09)
[2022-06-16] MEDS: InsuLIN REG 1unit/0.01ml Soln (100units/ml) SC SCH ×5 (00:52→18:28)
[2022-06-16 05:00] VITALS: BP 156/67
[2022-06-16 07:29] LABS: Albumin 2.4 g/dL (3.4-5.0); Calcium 8.5 mg/dL (8.5-10.1); Magnesium 2.3 mg/dL (1.6-2.6); Potassium 4.1 mmol/L (3.5-5.1)
[2022-06-16 07:33] LABS: BUN/Creatinine Ratio 40.8; Bilirubin, Total 1.9 mg/dL (0.2-1.0); Phosphorus 1.8 mg/dL (2.5-4.90); Total Protein 5.2 g/dL (6.4-8.2)
[2022-06-16 08:00] VITALS: BP 141/74
[2022-06-16] MEDS: DexAMETHasone SOD PHOS 10MG/1ML VIAL INJ IV SCH (09:48)
[2022-06-16] MEDS: ERTAPENEM SOD INJ 0.5 GM in SODIUM CHL 0.9% 50 ML IV SCH (09:49)
[2022-06-16] MEDS: PANTOPRAZOLE 40 MG/10 ML VIAL INJ IV SCH ×2 (09:49→22:39)
[2022-06-16] MEDS: ASPirin 81 mg TAB PO SCH (09:50)
[2022-06-16] MEDS: CHOLECALCIFEROL (VITD3) 2,000 UNIT CAP/TAB PO SCH (09:50)
[2022-06-16] MEDS: amLODIPine BESYLATE 5 MG TAB PO SCH (09:51)
[2022-06-16 12:00] VITALS: BP 130/65
[2022-06-16 16:00] VITALS: BP 114/56
[2022-06-16 20:00] VITALS: BP 144/73
[2022-06-16 22:34] VITALS: BP 144/73
[2022-06-16] MEDS: MIRTAZAPINE 30 MG TAB PO SCH (22:39)
[2022-06-16] MEDS: INSULIN LANTUS (GLARGINE) 1 /0.01ml (100units/ml) SC SCH (22:42)
[2022-06-17] VITALS (8 sets, daily range): BP systolic 132–144; BP diastolic 66–73
[2022-06-17] MEDS: InsuLIN REG 1unit/0.01ml Soln (100units/ml) SC SCH ×5 (01:00→23:01)
[2022-06-17] MEDS: ACCU-CHEK COMFORT CURVE STRIP VI SCH ×5 (01:01→22:31)
[2022-06-17] MEDS: ASPirin 81 mg TAB PO SCH (09:41)
[2022-06-17] MEDS: PANTOPRAZOLE 40 MG/10 ML VIAL INJ IV SCH ×2 (09:41→22:30)
[2022-06-17] MEDS: CHOLECALCIFEROL (VITD3) 2,000 UNIT CAP/TAB PO SCH (09:42)
[2022-06-17] MEDS: amLODIPine BESYLATE 5 MG TAB PO SCH (09:42)
[2022-06-17 10:08] LABS: Basophils # (auto) 0 10 ^3/uL (0-0.2); Basophils % (auto) 0.2 % (0.0-2.0); Eosinophils # (auto) 0 10 ^3/uL (0-0.8); Eosinophils % (auto) 0.3 % (0.0-7.0); Hematocrit 32.4 % (36.0-46.0); Hemoglobin 10.3 g/dL (12.2-16.2); Lymphocytes # (auto) 1.7 10 ^3/uL (0.4-5.4); Lymphocytes % (auto) 10.7 % (10.0-50.0); Mean Corpuscular Hemoglobin 30.3 pg (28.0-32.0); Mean Corpuscular Hgb Conc. 31.8 g/dL (32.0-36.0); Mean Corpuscular Volume 95.4 fL (80.0-100.0); Monocytes # (auto) 1.4 10 ^3/uL (0-1.3); Monocytes % (auto) 8.8 % (0.0-12.0); Red Blood Cells 3.39 10^6/uL (4.0-5.20); Red Cell Distribution Width 16.8 % (11.8-14.3); White Blood Cell 16.3 10^3/uL (4.4-10.8)
[2022-06-17 10:25] LABS: Albumin 2.4 g/dL (3.4-5.0); Calcium 8.6 mg/dL (8.5-10.1); Potassium 4.7 mmol/L (3.5-5.1)
[2022-06-17 10:28] LABS: Bilirubin, Total 1.6 mg/dL (0.2-1.0); Total Protein 5.4 g/dL (6.4-8.2)
[2022-06-17] MEDS: ERTAPENEM SOD INJ 0.5 GM in SODIUM CHL 0.9% 50 ML IV SCH (11:45)
[2022-06-17] MEDS: MIRTAZAPINE 30 MG TAB PO SCH (22:31)
[2022-06-17] MEDS: INSULIN LANTUS (GLARGINE) 1 /0.01ml (100units/ml) SC SCH (22:42)
[2022-06-17] MEDS: D5W 5% 1,000 ML IV SCH (23:00)
[2022-06-18 05:08] VITALS: BP 98/38
[2022-06-18] MEDS: ACCU-CHEK COMFORT CURVE STRIP VI SCH ×2 (06:03→11:47)
[2022-06-18] MEDS: InsuLIN REG 1unit/0.01ml Soln (100units/ml) SC SCH ×2 (06:04→12:17)
[2022-06-18 08:00] VITALS: BP 146/63
[2022-06-18 09:00] VITALS: BP 146/63
[2022-06-18] MEDS: ERTAPENEM SOD INJ 0.5 GM in SODIUM CHL 0.9% 50 ML IV SCH (10:40)
[2022-06-18] MEDS: PANTOPRAZOLE 40 MG/10 ML VIAL INJ IV SCH (10:41)
[2022-06-18] MEDS: ASPirin 81 mg TAB PO SCH (10:42)
[2022-06-18] MEDS: CHOLECALCIFEROL (VITD3) 2,000 UNIT CAP/TAB PO SCH (10:42)
[2022-06-18] MEDS: amLODIPine BESYLATE 5 MG TAB PO SCH (10:52)
[2022-06-18 13:00] VITALS: BP 134/72
[2022-06-18 16:51] VITALS: BP 146/74
== END 2022-06-18 17:53 | DRG 871 ==
LOC: EDBD 16:38 → ER 16:39 → OVERFLOW 23:26 → TELE-CENTR 05-31 16:25
PROVIDERS: ADMIT Nurse Practitioner Family; ATTEND Family Medicine
PROC: 05HF33Z Insertion of Infusion Device into Left Cephalic Vein, Percutaneous Approach (ICD-10-PCS; 2022-06-05)
PROC: B54NZZA Ultrasonography of Left Upper Extremity Veins, Guidance (ICD-10-PCS; 2022-06-05)
PROC: 0DH63UZ Insertion of Feeding Device into Stomach, Percutaneous Approach (ICD-10-PCS; principal; 2022-06-11 14:02)
PROC: 05HB33Z Insertion of Infusion Device into Right Basilic Vein, Percutaneous Approach (ICD-10-PCS; 2022-06-12)
PROC: B54MZZA Ultrasonography of Right Upper Extremity Veins, Guidance (ICD-10-PCS; 2022-06-12)
DX: A41.89 Other specified sepsis (principal); G93.41 Metabolic encephalopathy; I21.4 Non-ST elevation (NSTEMI) myocardial infarction; N17.0 Acute kidney failure with tubular necrosis; U07.1 COVID-19; R65.21 Severe sepsis with septic shock; J12.82 Pneumonia due to coronavirus disease 2019; E87.20 Acidosis, unspecified; N39.0 Urinary tract infection, site not specified; N18.4 Chronic kidney disease, stage 4 (severe); R18.8 Other ascites; E87.21 Acute metabolic acidosis; Z16.23 Resistance to quinolones and fluoroquinolones; E78.5 Hyperlipidemia, unspecified; R79.89 Other specified abnormal findings of blood chemistry; E11.22 Type 2 diabetes mellitus with diabetic chronic kidney disease; E88.09 Other disorders of plasma-protein metabolism, not elsewhere classified; F17.200 Nicotine dependence, unspecified, uncomplicated; I12.9 Hypertensive chronic kidney disease with stage 1 through stage 4 chronic kidney disease, or unspecified chronic kidney disease; I25.10 Atherosclerotic heart disease of native coronary artery without angina pectoris; Z86.73 Personal history of transient ischemic attack (TIA), and cerebral infarction without residual deficits; Z88.0 Allergy status to penicillin; E11.65 Type 2 diabetes mellitus with hyperglycemia; K64.9 Unspecified hemorrhoids; N18.9 Chronic kidney disease, unspecified; Z78.9 Other specified health status; E66.01 Morbid (severe) obesity due to excess calories; F32.A Depression, unspecified; K29.70 Gastritis, unspecified, without bleeding; E83.42 Hypomagnesemia; E87.6 Hypokalemia; K74.69 Other cirrhosis of liver; B96.20 Unspecified Escherichia coli [E. coli] as the cause of diseases classified elsewhere; K64.4 Residual hemorrhoidal skin tags; K74.60 Unspecified cirrhosis of liver; R13.10 Dysphagia, unspecified; R62.7 Adult failure to thrive; Z79.02 Long term (current) use of antithrombotics/antiplatelets; Z79.4 Long term (current) use of insulin; Z79.82 Long term (current) use of aspirin; Z88.8 Allergy status to other drugs, medicaments and biological substances; Z68.22 Body mass index [BMI] 22.0-22.9, adult; Z79.899 Other long term (current) drug therapy; Z82.49 Family history of ischemic heart disease and other diseases of the circulatory system; Z83.3 Family history of diabetes mellitus; Z86.14 Personal history of Methicillin resistant Staphylococcus aureus infection; Z90.710 Acquired absence of both cervix and uterus; Z91.199 Patient's noncompliance with other medical treatment and regimen due to unspecified reason; Z95.5 Presence of coronary angioplasty implant and graft
CPT/HCPCS: 36415; 70450; 70551; 71045; 73060; 76705; 76775; 80048; 80053; 80061; 80069; 81001; 82040; 82140; 82306; 82570; 82962; 83540; 83550; 83605; 83735; 83970; 84100; 84132; 84156; 84300; 84478; 84484; 85025; 85610; 85730; 87040; 87081; 87086; 87088; 87186; 87426; 92610; 93306; 93971; 94640; 95819; 96361; 96365; 96367; 96372; 97163; C9113; G0378; J1100; J1335; J1815; J1956; J2250; J2704; J3480; J3490; J7060; P9047